=== PATIENT | male | born 1940 | race Caucasian/White ===

== ENCOUNTER 2017-04-23 13:36 | Outpatient (CLI) | payer MEDICARE, BC ==
--- NOTE | 2017-04-24 07:48 | DEXA Report ---
DEXA SCAN: 04/23/2017 CLINICAL INDICATION: A 76-year-old with history of steroid use, chemotherapy, previous spine fractures. TECHNIQUE: Dual energy x-ray absorptiometry (DXA) was performed on a [employer] system. Regions measured are the AP spine, femoral neck, and, if needed, forearm. COMPARISON: None, using from the data from the left hip and left forearm. In accordance with the International Society for Clinical Densitometry (ISCD) guidelines, data from previous exams may be reanalyzed using current recommendations and techniques. This is done to allow a more accurate basis for comparison with the current study. The data for the hip is as follows: REGION BMD (g/cm/cm) T-SCORE Z-SCORE Neck 0.854 -1.3 0.4 TOTAL 0.932 -0.6 0.9 NOTE: The femoral neck or total proximal femur, whichever is lowest, is used for classification. The data for the forearm is as follows: REGION BMD (g/cm/cm) T-SCORE Z-SCORE 1/3 1.018 1.6 3.9 NOTE: The 33% radius of the nondominant forearm is used for classification. IMPRESSION: 1. THE WHO CLASSIFICATION BASED ON THE INTERNATIONAL REFERENCE STANDARD IS OSTEOPENIA (REFERENCE LEFT FEMORAL NECK). THE FRACTURE RISK IS INCREASED. 2. LEFT FOREARM EVALUATION DONE DUE TO HISTORY OF LUMBAR VERTEBRAL BODY FRACTURES. RECOMMENDATION: Patients with diagnosis of osteoporosis or osteopenia should have regular bone mineral density assessment. For those eligible for Medicare, routine testing is allowed once every 2 years. Testing frequency can be increased for patients who have rapidly progressing disease or for those who are receiving medical therapy to restore bone mass. COMMENT: World Health Organization (WHO) definitions for osteoporosis and osteopenia: NORMAL BMD: T-score at -1.0 or higher, fracture risk is low. OSTEOPENIA BMD: T-score between -1.0 and -2.5, fracture risk is increased. OSTEOPOROSIS BMD: T-score at -2.5 or lower, fracture risk high. National Osteoporosis Foundation recommends: 1. Obtain adequate dietary calcium (at least 1200 mg per day) and vitamin D (400 -800 international units per day). 2. Participate, as appropriate, in regular weightbearing and muscle- strengthening exercise. 3. Avoid tobacco use and reduce alcohol and caffeine intake. 4. For more detailed information see the website at www.NOF.org. MTDD
== END 2017-04-23 13:37 | disposition home or self-care (01) ==
LOC: DI 13:36
PROVIDERS: ATTEND Family Medicine
DX: M85.88 Other specified disorders of bone density and structure, other site (principal); M48.54XD Collapsed vertebra, not elsewhere classified, thoracic region, subsequent encounter for fracture with routine healing
CPT/HCPCS: 77080; 77081

== ENCOUNTER 2017-07-22 11:18 | Emergency (ER) | payer MEDICARE, BC ==
--- NOTE | 2017-07-22 12:27 | ED Physician Documentation ---
PD HPI FOCAL NEURO - Stated complaint Stated Complaint: DIZZY - Chief complaint Chief Complaint: Neuro - History obtained from History obtained from: Patient, Family - History of Present Illness Timing - onset: Other (This is a 77-year-old gentleman with history of resolved non-Hodgkin's lymphoma and B-cell lymphoma more recently with chemotherapy and radiation to the submental area, he also has a remote nephrectomy for renal cell carcinoma. He is a type II diabetic. 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 Over the last 2 days he has developed an acute disequilibrium that is worse with the lights off, it has improved somewhat. It was very bad 2 nights ago when he was veering to the left while walking. He continues to feel dizzy and somewhat vertiginous, it does not change with rotation of his head. There is no associated headache, weakness, numbness, or tingling in the extremities or face.) Review of Systems Ten Systems: 10 systems reviewed and negative Constitutional: denies: Fever, Chills Eyes: reports: Other (He says he has chronic diplopia when outside at night but none during the daytime, no change recently.) Ears: denies: Loss of hearing, Ear pain Nose: denies: Rhinorrhea / runny nose, Congestion Throat: denies: Dental pain / toothache, Sore throat Cardiac: denies: Chest pain / pressure, Palpitations Respiratory: denies: Dyspnea, Cough GI: denies: Abdominal Pain, Nausea, Vomiting PD PAST MEDICAL HISTORY - Past Medical History Past Medical History: Yes Cardiovascular: Hypertension, High cholesterol Respiratory: None Neuro: None, Fainting Endocrine/Autoimmune: Type 2 diabetes GI: None : None HEENT: None Psych: None Musculoskeletal: Osteoarthritis, Osteopenia Derm: None Other Past Medical History: lymphoma - Past Surgical History Past Surgical History: Yes General: Cholecystectomy, Colonoscopy Ortho: Arthroscopic surgery HEENT: Cataracts Derm: Skin cancer surgery - Present Medications Home Medications: Ambulatory Orders Medication Instructions Recorded Confirmed Clonazepam 1 mg PO HS 02/24/14 02/24/14 Finasteride 5 mg PO 02/24/14 02/24/14 Glipizide [Glipizide Xl] 10 mg PO DAILY PRN 02/24/14 02/24/14 Insulin Glargine,Hum.rec.anlog 20 unit SQ DAILY 02/24/14 07/22/17 [Lantus Solostar] Losartan Potassium [Cozaar] 100 mg PO DAILY 02/24/14 07/22/17 Metformin HCl [Metformin HCl ER] 2,000 mg PO DAILY PM 02/24/14 07/22/17 Multivitamin [Multi-Day Vitamins] 1 each PO DAILY 02/24/14 02/24/14 [place]-3 Fatty Acids [Fish Oil] 300 mg PO 02/24/14 02/24/14 Omeprazole [PriLOSEC] 20 mg PO DAILY 02/24/14 07/22/17 Tamsulosin HCl 0.8 mg PO DAILY 02/24/14 07/22/17 Saccharomyces Boulardii [Florastor] 500 mg PO BIDWM #40 capsule 10/08/15 Metoprolol Succinate 07/22/17 - Allergies Allergies/Adverse Reactions: Allergies Allergy/AdvReac Type Severity Reaction Status Date / Time sulfamethoxazole Allergy Severe Hives Verified 06/04/14 07:32 [From ] trimethoprim [From ] Allergy Severe Hives Verified 06/04/14 07:32 primidone AdvReac Intermediate pain Verified 06/04/14 07:32 - Social History Does the pt smoke?: No Smoking Status: Never smoker Does the pt drink ETOH?: Yes Does the pt have substance abuse?: No - Family History Family history: reports: Non contributory - Immunizations Immunizations are current?: Yes - POLST Patient has POLST: Yes POLST Status: Full Code PD ED PE NORMAL - Vitals Vital signs reviewed: Yes - General General: Alert and oriented X 3, No acute distress - HEENT HEENT: PERRL, EOMI - Neck Neck: Supple, no meningeal sign, No bony TTP - Cardiac Cardiac: RRR, No murmur - Respiratory Respiratory: No respiratory distress, Clear bilaterally - Abdomen Abdomen: Soft, Non tender - Derm Derm: Normal color, Warm and dry, No rash - Extremities Extremities: No edema, No calf tenderness / cord - Neuro Neuro: Alert and oriented X 3, Normal speech, Other (Medium frequency tremor in the upper extremities which is not new) - Psych Psych: Normal mood, Normal affect NIHSS - Time Time: 12:27 - Level of Consciousness Level of consciousness: (0) Alert, Keenly responsive LOC Questions: (0) Answers both Q's correct LOC Commands: (0) Performs both correctly - Gaze Best Gaze: (0) Normal - Visual Visual: (0) No loss - Facial Palsy Facial Palsy: (0) Normal, symmetrical movement - Motor Arms (both separate) Motor Arm (right): (0) No drift Motor Arm (left): (0) No drift - Motor Legs (both separate) Motor Leg (right): (0) No drift Motor Leg (left): (0) No drift - Limb Ataxia Limb Ataxia: (0) Absent - Sensory Sensory: (0) Normal - Best Language Best Language: (0) No aphasia - Dysarthria Dysarthria: (0) Normal - Extinction and Inattention (formally neg Extinction and inattention: (0) No abnormality - Total Score/Results Total Score/Result: 0 Results - Vitals Vitals: Vital Signs - 24 hr 07/22/17 07/22/17 07/22/17 11:22 12:43 14:11 Temperature 36.3 C L 36.1 C L 36.3 C L Heart Rate 92 73 84 Respiratory 18 15 15 Rate Blood Pressure 160/82 H 137/82 H 150/94 H O2 Saturation 97 98 95 Oxygen O2 Source Room air - Labs Labs: Laboratory Tests 07/22/17 07/22/17 07/22/17 12:50 12:50 13:08 WBC 6.5 RBC 4.70 Hgb 14.4 Hct 41.2 L MCV 87.7 MCH 30.7 MCHC 35.0 RDW 13.3 Plt Count 161 MPV 8.7 Neut # 3.9 Lymph # 1.8 [place] # 0.6 Eos # 0.2 Baso # 0.0 Absolute Nucleated RBC 0.00 Nucleated RBC % 0.0 Sodium 136 Potassium 4.1 Chloride 102 Carbon Dioxide 26 Anion Gap 8.0 BUN 15 Creatinine 1.0 Estimated GFR (MDRD) 73 L Glucose 122 H POC Whole Bld Glucose 99 Calcium 9.4 Total Bilirubin 0.7 AST 27 ALT 16 Alkaline Phosphatase 40 L Total Protein 7.1 Albumin 4.3 Globulin 2.8 Albumin/Globulin Ratio 1.5 Lipase 34 - Rads (name of study) MRI Brain w/w/o Radiology: Final report received, See rad report PD MEDICAL DECISION MAKING - ED course ED course: 77-year-old gentleman presents with an acute disequilibrium that seems central by history and physical. He was sent for an MRI, he does have a known mass in the left inferior colliculus, this was reimaged today. The differential diagnosis was different for the images today than the records they had with them , previous thought was that it was fat density, potentially a lipoma, today to the neuroradiologist looks more like a vascular lesion. There were given a copy of the report and they will follow-up with their neurologist. There is no evidence of stroke. Departure - Departure Disposition: 01 Home, Self Care Clinical Impression: Vertigo, Intracranial mass Condition: Good Record reviewed to determine appropriate education?: Yes Comments: Call your neurologist for follow-up, take the copy of the MRI report with you, this may change how he is managing this. Return if worse. Your blood pressure was elevated today on check into the emergency department. This does not mean that you have hypertension, it is a common phenomenon to come to the emergency department and have elevated blood pressure. I recommend that she see your primary care physician within the week to have it rechecked when you are feeling better.
[2017-07-22 12:57] LABS: BASOPHILS % (AUTO) 0.5 %; EOSINOPHILS # (AUTO) 0.2 10^3/uL (0.0-0.7); EOSINOPHILS % (AUTO) 2.8 %; HCT - HEMATOCRIT 41.2 % (42.0-52.0); HGB - HEMOGLOBIN 14.4 g/dL (14.0-18.0); LYMPHOCYTES # (AUTO) 1.8 10^3/uL (1.5-3.5); LYMPHOCYTES % (AUTO) 27.4 %; MEAN CORPUSCULAR HEMOGLOBIN 30.7 pg (27.0-31.0); MEAN CORPUSCULAR VOLUME 87.7 fL (80.0-94.0); MEAN PLATELET VOLUME 8.7 fL (7.4-11.4); MONOCYTES # (AUTO) 0.6 10^3/uL (0.0-1.0); NEUTROPHILS # (AUTO) 3.9 10^3/uL (1.5-6.6); NEUTROPHILS % (AUTO) 59.3 %; RED CELL DISTRIBUTION WIDTH 13.3 % (12.0-15.0); UNCORRECTED WHITE BLOOD COUNT 6.5 x10^3/uL; WHITE BLOOD COUNT 6.5 x10^3/uL (4.8-10.8)
[2017-07-22 13:08] LABS: ALBUMIN/GLOBULIN RATIO 1.5 (1.0-2.2); BILIRUBIN,TOTAL 0.7 mg/dL (0.2-1.0); CALCIUM 9.4 mg/dL (8.5-10.3); POTASSIUM 4.1 mmol/L (3.5-5.0); TOTAL PROTEIN 7.1 g/dL (6.7-8.2)
[2017-07-22] MEDS ORDERED: GADOBUTROL 7.5 MMOL/7.5 ML VIAL ONE (13:32)
--- NOTE | 2017-07-22 15:39 | MRI Preliminary Report ---
Exam: MRI Brain W/WO IMPRESSION: 1. No evidence of acute or subacute infarct, intracranial hemorrhage, mass effect, midline shift, or hydrocephalus. No abnormal parenchymal enhancement. 2. No prior studies are available for comparison, however, as suggested by the history, there is a he terogeneous, likely cystic/solid mass along the left aspect of the left inferior colliculus (series 3 01 image 10, series 402 image 39), measuring approximately 5 x 4 x 12 mm. There is associated suscept ibility artifact on the GRE sequence. The enhancement associated with this lesion appears to represen t vascular loops. Recommend correlation with prior studies and known history to determine etiology an d evolution of this mass. Possible differential considerations include given associated vascular ty pe enhancement vascular lesion such as cavernoma, partially calcified aneurysm, or arteriovenous ma lformation. [facility] SITE ID: [id number]
--- NOTE | 2017-07-22 15:42 | MRI Report ---
EXAM: MRI BRAIN WITHOUT AND WITH CONTRAST EXAM DATE: 07/22/2017 02:03 PM. CLINICAL HISTORY: Acute dysequilibrium, known inf colliculus mass. COMPARISON: None. TECHNIQUE: Multiplanar, multisequence T1-weighted and fluid-sensitive MR sequences of the brain were performed. Sequences optimized for routine evaluation. Other: None. Without and with IV Contrast: Yes . FINDINGS: Brain Volume: Normal for age. Parenchyma/Dura: No prior studies are available for comparison, as suggested by the history, there is a heterogeneous, likely cystic/solid mass along the left aspect of the left inferior colliculus (ser ies 301 image 10, series 402 image 39), measuring approximately 5 x 4 x 12 mm. There is associated merino sceptibility artifact on the GRE sequence. The enhancement associated with this lesion appears to rep resent vascular loops. No acute parenchymal hemorrhage, mass effect, or midline shift. Scattered T2/F LAIR hyperintense periventricular, subcortical, and deep white matter lesions discernible hemispheres bilaterally. No areas of restricted diffusion to suggest acute infarct. No definite abnormal areas o f susceptibility artifact. No abnormal parenchymal enhancement. Pituitary: Normal. Ventricles/Cisterns: No definite abnormal extra-axial fluid collection/mass seen. Ventricles and sulc i appear age appropriate. Cisterns are patent. Fluid is seen within Meckel's caves. Visualized international marketing specialist al auditory canals appear clear. Sinuses: Visualized paranasal sinuses appear clear. Mastoid air cells and middle ear cavities appear clear. Orbits: Status post bilateral lens replacement surgery. The visualized orbits are otherwise unremarka ble. Vasculature: Visualized major intracranial flow voids appear maintained. Dural sinuses appear patent. Bones: Normal. Other: None. IMPRESSION: 1. No evidence of acute or subacute infarct, intracranial hemorrhage, mass effect, midline shift, or hydrocephalus. No abnormal parenchymal enhancement. 2. No prior studies are available for comparison, however, as suggested by the history, there is a he terogeneous, likely cystic/solid mass along the left aspect of the left inferior colliculus (series 3 01 image 10, series 402 image 39), measuring approximately 5 x 4 x 12 mm. There is associated suscept ibility artifact on the GRE sequence. The enhancement associated with this lesion appears to represen t vascular loops. Recommend correlation with prior studies and known history to determine etiology an d evolution of this mass. Possible differential considerations include given associated vascular ty pe enhancement vascular lesion such as cavernoma, partially calcified aneurysm, or arteriovenous ma lformation. [facility] Referring Provider Line: [phone] SITE ID: [id number]
[2017-07-22 16:01] VITALS: BP 140/88
== END 2017-07-22 16:01 | disposition home or self-care (01) ==
LOC: ED 11:18
DX: R42 Dizziness and giddiness (principal); R22.0 Localized swelling, mass and lump, head; I10 Essential (primary) hypertension; E11.9 Type 2 diabetes mellitus without complications; Z79.4 Long term (current) use of insulin; Z79.84 Long term (current) use of oral hypoglycemic drugs; E78.00 Pure hypercholesterolemia, unspecified; M19.90 Unspecified osteoarthritis, unspecified site; Z85.72 Personal history of non-Hodgkin lymphomas; Z85.528 Personal history of other malignant neoplasm of kidney; Z90.5 Acquired absence of kidney
CPT/HCPCS: 36415; 70553; 80053; 83690; 85025; 99284; A9585

== ENCOUNTER 2018-08-06 09:40 | Emergency (ER) | payer MEDICARE, BC ==
[2018-08-06 10:45] LABS: BASOPHILS % (AUTO) 0.2 %; EOSINOPHILS # (AUTO) 0.1 10^3/uL (0.0-0.7); EOSINOPHILS % (AUTO) 1.8 %; HGB - HEMOGLOBIN 14.9 g/dL (14.0-18.0); LYMPHOCYTES # (AUTO) 1.6 10^3/uL (1.5-3.5); LYMPHOCYTES % (AUTO) 29.4 %; MEAN CORPUSCULAR HEMOGLOBIN 30.1 pg (27.0-31.0); MEAN PLATELET VOLUME 9.7 fL (7.4-11.4); MONOCYTES # (AUTO) 0.6 10^3/uL (0.0-1.0); MONOCYTES % (AUTO) 10.8 %; NEUTROPHILS # (AUTO) 3.1 10^3/uL (1.5-6.6); NEUTROPHILS % (AUTO) 57.8 %; PLT - PLATELET COUNT 157 10^3/uL (130-450); RED BLOOD COUNT 4.94 10^6/uL (4.70-6.10); RED CELL DISTRIBUTION WIDTH 13.5 % (12.0-15.0); WHITE BLOOD COUNT 5.4 x10^3/uL (4.8-10.8)
[2018-08-06 10:52] LABS: ALBUMIN 4.2 g/dL (3.2-5.5); ALBUMIN/GLOBULIN RATIO 1.4 (1.0-2.2); BILIRUBIN,TOTAL 0.3 mg/dL (0.2-1.0); CALCIUM 9.5 mg/dL (8.5-10.3); TOTAL PROTEIN 7.1 g/dL (6.7-8.2)
--- NOTE | 2018-08-06 11:19 | XRAY Report ---
Reason: Chest Pain Procedure Date: 08/06/2018 Accession Number: [id number] / [id number] Procedure: XR - Chest 1 View X-Ray CPT Code: 96593 FULL RESULT: EXAM: CHEST RADIOGRAPHY EXAM DATE: 08/06/2018 11:05 AM. CLINICAL HISTORY: Chest Pain. COMPARISON: CHEST 2 VIEW PA/LAT 09/10/2015 6:40 PM. TECHNIQUE: 1 view. FINDINGS: Lungs/Pleura: No focal opacities evident. No pleural effusion. No pneumothorax. Mediastinum: Within exam limitations, the cardiomediastinal contour is normal. There is mild atherosclerotic calcification of the aortic arch. Other: There are multiple surgical clips in the right upper quadrant of the abdomen. No acute osseous abnormality. IMPRESSION: No acute cardiopulmonary abnormality. [facility]
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
[2018-08-06 13:07] VITALS: BP 134/83
== END 2018-08-06 13:16 | disposition home or self-care (01) ==
LOC: ED 09:40
DX: R07.89 Other chest pain (principal); I45.10 Unspecified right bundle-branch block; I10 Essential (primary) hypertension; E78.00 Pure hypercholesterolemia, unspecified; E11.9 Type 2 diabetes mellitus without complications; Z79.4 Long term (current) use of insulin; Z85.72 Personal history of non-Hodgkin lymphomas; Z85.89 Personal history of malignant neoplasm of other organs and systems
CPT/HCPCS: 71045; 80053; 83690; 83880; 84484; 85025; 85379; 93005; 99284

== ENCOUNTER 2018-08-24 09:18 | Outpatient (CLI) | payer MEDICARE, BC ==
--- NOTE | 2018-08-24 14:02 | Ultrasound Report ---
Reason: ATHEROSCLEROSIS OF AORTA Procedure Date: 08/24/2018 Accession Number: [id number] / [id number] Procedure: US - Ankle Brachial Index CPT Code: FULL RESULT: EXAM: AORTIC DOPPLER ULTRASOUND AND ANKLE/BRACHIAL INDEX EXAM DATE: 08/24/2018 10:45 AM. CLINICAL HISTORY: Atherosclerosis of aorta. COMPARISON: None. TECHNIQUE: Real-time sonographic imaging of retroperitoneal vascular structures, including color-flow, Doppler flow and spectral analysis was performed by the social science manager. Multiple procurement representative static images were saved for review. Real-time sonographic imaging and blood pressures of the lower extremity vasculature was performed. FINDINGS: Aorta: The abdominal aorta was adequately visualized. No evidence for abdominal aortic aneurysm. Aorta: Proximal: Sagittal AP: 2.5 cm. Mid: Transverse: 2.0 x 1.9 cm. Distal: Transverse: 2.0 x 2.4 cm. Caliber WNL: Yes. Plaque visualized: Yes. Iliacs: Right Iliac: Transverse: 1.1 x 1.0 cm. Left Iliac: Transverse: 1.3 x 1.1 cm. Doppler: Prx Aorta: PSV 96 cm/sec. Mid Aorta: PSV 82 cm/sec. Dist Aorta: PSV 88 cm/sec. Proximal RCIA PSV: 118 cm/sec. Proximal LCIA PSV: 148 cm/sec. Iliac Vessels: The visualized proximal common iliac arteries are normal in caliber. Lower Extremity Vasculature: Right brachial artery blood pressure 152/78, left brachial artery blood pressure 152/75. Right posterior tibial artery blood pressure 185/82 left posterior tibial artery blood pressure 183/70/ Right ankle/arm index 1.22 and left ankle/arm index of 1.20. The bilateral posterior tibial arteries and dorsalis pedis arteries demonstrate patency with brisk upstroke and expected arterial waveforms. Subjectively, the vasculature is markedly atherosclerotic. The following peak systolic velocities were recorded in centimeters per second: Right CPR INSTRUCTOR: 67 Right DPA: 20 Left CPR INSTRUCTOR: 52 Left DPA: 46 IMPRESSION: No abdominal aortic aneurysm. Atherosclerotic lower extremity arteries with preserved arterial inflow supplying the dorsalis pedis artery. The ankle arm indices are possibly falsely elevated due to vascular calcinosis. [facility]
--- NOTE | 2018-08-24 14:02 | Ultrasound Report ---
Reason: ATHEROSCLEROSIS OF AORTA Procedure Date: 08/24/2018 Accession Number: [id number] / [id number] Procedure: US - Duplex Aorta Complete CPT Code: FULL RESULT: EXAM: AORTIC DOPPLER ULTRASOUND AND ANKLE/BRACHIAL INDEX EXAM DATE: 08/24/2018 10:45 AM. CLINICAL HISTORY: Atherosclerosis of aorta. COMPARISON: None. TECHNIQUE: Real-time sonographic imaging of retroperitoneal vascular structures, including color-flow, Doppler flow and spectral analysis was performed by the continuity person. Multiple marketing sales representative static images were saved for review. Real-time sonographic imaging and blood pressures of the lower extremity vasculature was performed. FINDINGS: Aorta: The abdominal aorta was adequately visualized. No evidence for abdominal aortic aneurysm. Aorta: Proximal: Sagittal AP: 2.5 cm. Mid: Transverse: 2.0 x 1.9 cm. Distal: Transverse: 2.0 x 2.4 cm. Caliber WNL: Yes. Plaque visualized: Yes. Iliacs: Right Iliac: Transverse: 1.1 x 1.0 cm. Left Iliac: Transverse: 1.3 x 1.1 cm. Doppler: Prx Aorta: PSV 96 cm/sec. Mid Aorta: PSV 82 cm/sec. Dist Aorta: PSV 88 cm/sec. Proximal RCIA PSV: 118 cm/sec. Proximal LCIA PSV: 148 cm/sec. Iliac Vessels: The visualized proximal common iliac arteries are normal in caliber. Lower Extremity Vasculature: Right brachial artery blood pressure 152/78, left brachial artery blood pressure 152/75. Right posterior tibial artery blood pressure 185/82 left posterior tibial artery blood pressure 183/70/ Right ankle/arm index 1.22 and left ankle/arm index of 1.20. The bilateral posterior tibial arteries and dorsalis pedis arteries demonstrate patency with brisk upstroke and expected arterial waveforms. Subjectively, the vasculature is markedly atherosclerotic. The following peak systolic velocities were recorded in centimeters per second: Right CRIMINALIST: 67 Right DPA: 20 Left CRIMINALIST: 52 Left DPA: 46 IMPRESSION: No abdominal aortic aneurysm. Atherosclerotic lower extremity arteries with preserved arterial inflow supplying the dorsalis pedis artery. The ankle arm indices are possibly falsely elevated due to vascular calcinosis. RADIA
== END 2018-08-24 09:19 | disposition home or self-care (01) ==
LOC: DI 09:18
PROVIDERS: ATTEND Internal Medicine Cardiovascular Disease
DX: I70.0 Atherosclerosis of aorta (principal); I70.203 Unspecified atherosclerosis of native arteries of extremities, bilateral legs
CPT/HCPCS: 93922; 93978

== ENCOUNTER 2018-10-09 01:23 | Emergency (ER) | payer MEDICARE, BC ==
--- NOTE | 2018-10-09 01:48 | ED Physician Documentation ---
PD HPI HEADACHE - Stated complaint Stated Complaint: HEAD PAIN - Chief complaint Chief Complaint: General - History obtained from History obtained from: Patient - History of Present Illness Timing - onset: Other (episodic since 09/27) Timing - duration: Hours, Days, Other (episodes last hours, sometimes the whole day) Timing - details: Abrupt onset, Intermittant Pain level max: 10 Pain level now: 1 Location: Left, Other (left occipitotemporal) Quality: Aching, Stabbing Associated symptoms: Vision changes (blurry vision). No: Fever, Stiff neck, Nausea, Vomiting, Weakness, Numbness, Syncope, Seizure, Eye pain Improved by: Nothing Worsened by: Other (no inciting or exacerbating factors) Contributing factors: No: Anticoagulated, Possible carbon monoxide, Hypertension, Recent illness, Trauma Similar symptoms before: No diagnosis, Work up / diagnostics (recent blood work including CBC; per patient, unremarkable results. has MRI scheduled for middle of coming week) Recently seen: Clinic - Additional information Additional information: c/o episodic left-sided headache since beginning of this month. took two oxycodone tablets earlier this afternoon and this provided significant relief (ELENA is nearly resolved by the time of this evaluation) Review of Systems Constitutional: reports: Reviewed and negative Eyes: reports: Decreased vision (blurry vision with the headaches, but resolves with headache resolution) Ears: reports: Reviewed and negative Nose: denies: Sinus pressure / pain Throat: denies: Dental pain / toothache, Sore throat Cardiac: reports: Reviewed and negative Respiratory: reports: Reviewed and negative GI: denies: Nausea, Vomiting Skin: denies: Rash Musculoskeletal: denies: Neck pain, Back pain Neurologic: reports: Headache. 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 - Past Surgical History Past Surgical History: Yes General: Cholecystectomy, Colonoscopy Ortho: Arthroscopic surgery HEENT: Cataracts Derm: Skin cancer surgery - Present Medications Home Medications: Ambulatory Orders Medication Instructions Recorded Confirmed Finasteride 5 mg PO 02/24/14 02/24/14 Glipizide [Glipizide Xl] 10 mg PO DAILY PRN 02/24/14 02/24/14 Insulin Glargine,Hum.rec.anlog 20 unit SQ DAILY 02/24/14 07/22/17 [Lantus Solostar] Losartan Potassium [Cozaar] 100 mg PO DAILY 02/24/14 07/22/17 Metformin HCl [Metformin HCl ER] 2,000 mg PO DAILY PM 02/24/14 07/22/17 Multivitamin [Multi-Day Vitamins] 1 each PO DAILY 02/24/14 02/24/14 [place]-3 Fatty Acids [Fish Oil] 300 mg PO 02/24/14 02/24/14 Omeprazole [PriLOSEC] 20 mg PO DAILY 02/24/14 07/22/17 Tamsulosin HCl 0.8 mg PO DAILY 02/24/14 07/22/17 clonazePAM [Clonazepam] 1 mg PO HS 02/24/14 02/24/14 Saccharomyces Boulardii [Florastor] 500 mg PO BIDWM #40 capsule 10/08/15 Metoprolol Succinate 07/22/17 Oxycodone HCl/Acetaminophen 1 - 2 each PO Q6H PRN #14 tablet 10/09/18 [Percocet 5-325 mg Tablet] - Allergies Allergies/Adverse Reactions: Allergies Allergy/AdvReac Type Severity Reaction Status Date / Time sulfamethoxazole Allergy Severe Hives Verified 10/09/18 01:37 [From ] trimethoprim [From ] Allergy Severe Hives Verified 10/09/18 01:37 primidone AdvReac Intermediate pain Verified 10/09/18 01:37 - Social History Does the pt smoke?: No Smoking Status: Never smoker Does the pt drink ETOH?: Yes Does the pt have substance abuse?: No - Immunizations Immunizations are current?: Yes - POLST Patient has POLST: Yes POLST Status: Full Code PD ED PE NORMAL - Vitals Vital signs reviewed: Yes - General General: Alert and oriented X 3, No acute distress, Well developed/nourished - HEENT HEENT: PERRL, EOMI, Ears normal, Moist mucous membranes, Pharynx benign, Other (no mastoid erythema or tenderness) - Neck Neck: Supple, no meningeal sign - Cardiac Cardiac: RRR, No murmur - Respiratory Respiratory: No respiratory distress, Clear bilaterally - Derm Derm: Normal color, Warm and dry - Neuro Neuro: Alert and oriented X 3, 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 2-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, No motor deficit, No sensory deficit, Normal speech Eye Opening: Spontaneous Motor: Obeys Commands Verbal: Oriented GCS Score: 15 Results - Vitals Vitals: Vital Signs - 24 hr 10/09/18 10/09/18 10/09/18 01:34 03:40 03:41 Temperature 37.0 C Heart Rate 90 82 Respiratory 18 16 Rate Blood Pressure 167/78 H 146/76 H O2 Saturation 94 95 Oxygen O2 Source Room air - Rads (name of study) CT head Radiology: Prelim report reviewed, See rad report PD MEDICAL DECISION MAKING - ED course Complexity details: reviewed results, re-evaluated patient, considered differential, d/w patient Departure - Departure Disposition: 01 Home, Self Care Clinical Impression: Headache Condition: Good Instructions: ED Cephalgia Unspecified Follow-Up: Dayron Kennedy MD [Primary Care Provider] - Within 1 week Prescriptions: Oxycodone HCl/Acetaminophen [Percocet 5-325 mg Tablet] 1 - 2 each PO Q6H PRN #14 tablet PRN Reason: pain Discharge Date/Time: 10/09/18 03:51
--- NOTE | 2018-10-09 02:54 | CT Report ---
Reason: headache Procedure Date: 10/09/2018 Accession Number: [id number] / [id number] Procedure: CT - Head W/O CPT Code: FULL RESULT: EXAM: CT HEAD EXAM DATE: 10/09/2018 02:41 AM. CLINICAL HISTORY: Headache. COMPARISON: BRAIN W/WO 07/22/2017 1:24 PM. TECHNIQUE: Multiaxial CT images were obtained from the foramen magnum to the vertex. Reformats: Sagittal and coronal. IV contrast: None. In accordance with CT protocol optimization, one or more of the following dose reduction techniques were utilized for this exam: automated exposure control, adjustment of mA and/or KV based on patient size, or use of iterative reconstructive technique. FINDINGS: Parenchyma: No intraparenchymal hemorrhage. No evidence of mass, midline shift, or CT findings of infarction. Davis-white differentiation is distinct. There is mild chronic microvascular change in the deep white matter bilaterally. Extraaxial Spaces: Normal for age. No evidence of subarachnoid hemorrhage. There is no subdural or epidural collection. Ventricles: Normal in size and position. Sinuses and Orbits: Imaged paranasal sinuses, orbits, and mastoids show no significant abnormality. Bones: No evidence of fracture or calvarial defect. Other: None. IMPRESSION: 1. No acute intracranial abnormality. 2. No intra-cranial mass lesion, mass-effect, or hydrocephalus. 3. Mild age-related generalized cerebral volume loss and chronic microvascular change. RADIA
[2018-10-09 03:42] VITALS: BP 146/76
== END 2018-10-09 03:51 | disposition home or self-care (01) ==
LOC: ED 01:23
DX: R51 Headache (principal); E78.00 Pure hypercholesterolemia, unspecified; E11.9 Type 2 diabetes mellitus without complications; I10 Essential (primary) hypertension; Z85.528 Personal history of other malignant neoplasm of kidney; Z90.5 Acquired absence of kidney
CPT/HCPCS: 70450; 99283

== ENCOUNTER 2019-05-03 15:21 | Outpatient (CLI) | payer MEDICARE, BC ==
--- NOTE | 2019-05-04 09:40 | Ultrasound Report ---
Reason: RENAL CELL CANCER, CHRONIC KIDNEY DISEASE,STAGEIII Procedure Date: 05/03/2019 Accession Number: [id number] / [id number] Procedure: US - Retroperitoneal CPT Code: FULL RESULT: EXAM: RENAL ULTRASOUND EXAM DATE: 05/03/2019 04:16 PM. CLINICAL HISTORY: Renal cell cancer, chronic kidney disease, stage III. COMPARISON: None. TECHNIQUE: Real-time scanning was performed with static images obtained. FINDINGS: Right Kidney: Status post nephrectomy in 1995 with no mass in the nephrectomy bed identified. Left Kidney: 13.8 cm. Multiple cysts are noted measuring up to 5.0 x 4.8 x 4.2 cm in the upper pole. There is a nonobstructing 0.7 cm calculus in the lower pole. Bladder: Left jet is seen. The prevoid bladder volume was 413 cc. The postvoid bladder volume was 49 cc. Other: None. IMPRESSION: No recurrent mass in the nephrectomy bed. 49 cc postvoid residual. RADIA
== END 2019-05-03 15:22 | disposition home or self-care (01) ==
LOC: DI 15:21
PROVIDERS: ATTEND Family Medicine
DX: C64.9 Malignant neoplasm of unspecified kidney, except renal pelvis (principal); N18.3 Chronic kidney disease, stage 3 (moderate)
CPT/HCPCS: 76770

== ENCOUNTER 2019-06-30 08:00 | Outpatient (CLI) | payer MEDICARE, BC ==
[2019-06-30 18:49] LABS: BASOPHILS % (AUTO) 0.5 %; EOSINOPHILS # (AUTO) 0.2 10^3/uL (0.0-0.7); EOSINOPHILS % (AUTO) 2.5 %; HGB - HEMOGLOBIN 14.3 g/dL (14.0-18.0); LYMPHOCYTES # (AUTO) 1.7 10^3/uL (1.5-3.5); LYMPHOCYTES % (AUTO) 28.7 %; MEAN CORPUSCULAR HEMOGLOBIN 30.2 pg (27.0-31.0); MEAN CORPUSCULAR HGB CONC 34.3 g/dL (32.0-36.0); MEAN CORPUSCULAR VOLUME 88.2 fL (80.0-94.0); MEAN PLATELET VOLUME 11.8 fL (7.4-11.4); MONOCYTES # (AUTO) 0.6 10^3/uL (0.0-1.0); MONOCYTES % (AUTO) 9.4 %; NEUTROPHILS # (AUTO) 3.5 10^3/uL (1.5-6.6); NEUTROPHILS % (AUTO) 58.4 %; PLT - PLATELET COUNT 181 10^3/uL (130-450); RED BLOOD COUNT 4.73 10^6/uL (4.70-6.10); RED CELL DISTRIBUTION WIDTH 12.9 % (12.0-15.0)
[2019-06-30 19:06] LABS: ALBUMIN/GLOBULIN RATIO 1.3 (1.0-2.2); BILIRUBIN,TOTAL 0.7 mg/dL (0.2-1.0); CALCIUM 9.7 mg/dL (8.5-10.3)
== END 2019-06-30 23:59 | disposition home or self-care (01) ==
LOC: LAB.WCP 08:00
PROVIDERS: ATTEND Internal Medicine Hematology & Oncology
DX: C83.30 Diffuse large B-cell lymphoma, unspecified site (principal)
CPT/HCPCS: 36415; 80053; 83615; 85025

== ENCOUNTER 2019-10-24 11:15 | Emergency (ER) | payer MEDICARE, BC ==
[2019-10-24 11:48] VITALS: BP 148/73
[2019-10-24 12:43] LABS: BASOPHILS % (AUTO) 0.5 %; EOSINOPHILS # (AUTO) 0.1 10^3/uL (0.0-0.7); EOSINOPHILS % (AUTO) 1.8 %; HGB - HEMOGLOBIN 15.1 g/dL (14.0-18.0); LYMPHOCYTES % (AUTO) 26.1 %; MEAN CORPUSCULAR HEMOGLOBIN 29.3 pg (27.0-31.0); MEAN CORPUSCULAR HGB CONC 33.6 g/dL (32.0-36.0); MEAN CORPUSCULAR VOLUME 87.2 fL (80.0-94.0); MEAN PLATELET VOLUME 10.3 fL (7.4-11.4); MONOCYTES % (AUTO) 12.9 %; NEUTROPHILS # (AUTO) 4.4 10^3/uL (1.5-6.6); NEUTROPHILS % (AUTO) 58.2 %; PLT - PLATELET COUNT 200 10^3/uL (130-450); RED BLOOD COUNT 5.15 10^6/uL (4.70-6.10); RED CELL DISTRIBUTION WIDTH 12.8 % (12.0-15.0); WHITE BLOOD COUNT 7.6 x10^3/uL (4.8-10.8)
--- NOTE | 2019-10-24 12:45 | XRAY Report ---
Reason: cough/congestion Procedure Date: 10/24/2019 Accession Number: [id number] / [id number] Procedure: XR - Chest 2 View X-Ray CPT Code: 29079 Final Report FULL RESULT: EXAM: CHEST RADIOGRAPHY EXAM DATE: 10/24/2019 12:11 PM. CLINICAL HISTORY: Cough/congestion. COMPARISON: CHEST 1 VIEW 08/06/2018 10:57 AM. TECHNIQUE: 2 views. FINDINGS: Lungs/Pleura: No focal opacities evident. No pleural effusion. No pneumothorax. Normal volumes. Mediastinum: Mild aortic calcifications are again seen, cardiomediastinal silhouette is otherwise unremarkable. Other: Surgical clips in the upper abdomen are redemonstrated. IMPRESSION: No acute cardiopulmonary abnormality. RADIA
[2019-10-24 13:08] LABS: CALCIUM 9.7 mg/dL (8.5-10.3); CREATININE 1.2 mg/dL (0.6-1.2); TOTAL PROTEIN 7.9 g/dL (6.7-8.2)
== END 2019-10-24 13:32 | disposition left against medical advice (07) ==
LOC: ED 11:15
DX: Z53.21 Procedure and treatment not carried out due to patient leaving prior to being seen by health care provider (principal)
CPT/HCPCS: 36415; 71046; 80053; 83690; 85025

== ENCOUNTER 2020-05-01 15:57 | Outpatient (CLI) | payer MEDICARE, BC ==
--- NOTE | 2020-05-01 17:09 | Ultrasound Report ---
PROCEDURE: Retroperitoneal INDICATIONS: KIDNEY STONES TECHNIQUE: Real-time scanning was performed of the retroperitoneal organs, with image documentation. COMPARISON: 05.03.19. FINDINGS: Kidneys: Status post right nephrectomy. Left kidney measures 14 cm in length and demonstrates a renal cortical thickness of 16 mm. Multiple cysts are present, as before, largest of which is in the super ior pole measuring 55 mm (previously measuring 50 mm). Multiple left renal calculi are present which are nonobstructing, largest of which is in the interpolar kidney measuring 14 mm. Inferior pole renal calculi measuring 8 mm and 5 mm are present, as before. No hydronephrosis. Prevoid urinary bladder volume is 316 cc. Postvoid residual is 217 cc. Prostate is enlarged measuring 56 mm (previously 43 mm) to see. Left ureteral jet is present. IMPRESSION: 1. Status post right nephrectomy. 2. Multiple nonobstructing left renal calculi. 3. Large postvoid residual in the urinary bladder. 4. Increased prostate hypertrophy. Recommend correlation with PSA values. Reviewed by: Herbert Gifford MD on 05/01/2020 5:07 PM PDT Approved by: Herbert Gifford MD on 05/01/2020 5:07 PM PDT Station ID: [id number]
== END 2020-05-01 15:58 | disposition home or self-care (01) ==
LOC: DI 15:57
PROVIDERS: ATTEND Student in an Organized Health Care Education/Training Program
DX: N20.0 Calculus of kidney (principal); N40.0 Benign prostatic hyperplasia without lower urinary tract symptoms; Z90.5 Acquired absence of kidney
CPT/HCPCS: 76770

== ENCOUNTER 2020-11-21 13:47 | Outpatient (CLI) | payer MEDICARE, BC ==
--- NOTE | 2020-11-21 16:43 | XRAY Report ---
PROCEDURE: Abdomen 1 View X-Ray INDICATIONS: KIDNEY STONES TECHNIQUE: 1 view of the abdomen were acquired. COMPARISON: Ultrasound abdomen 05/01/2020 CT abdomen pelvis 10/08/2015 FINDINGS: Surgical changes and devices: None. Bowel: No pneumoperitoneum. The bowel gas pattern is normal. Soft tissues: No masses; visualized solid organ contours appear normal in size. There are 2 calcific ations identified overlying the left renal shadow, the lowest overlying the inferior pole measuring 7 mm. Bones: No suspicious bony abnormalities. Vertebral/kyphoplasty changes are present at L2. IMPRESSION: Left renal calcifications as above. It is noted these were present on prior ultrasound. Reviewed by: Nilsa Schumacher MD on 11/21/2020 4:42 PM PST Approved by: Nilsa Schumacher MD on 11/21/2020 4:42 PM [facility] Station ID: [id number]
== END 2020-11-21 13:48 | disposition home or self-care (01) ==
LOC: DI 13:47
PROVIDERS: ATTEND Student in an Organized Health Care Education/Training Program
DX: N20.0 Calculus of kidney (principal)

== ENCOUNTER 2021-03-07 08:00 | Outpatient (CLI) | payer MEDICARE, BC | END 2021-03-07 23:59 | disposition home or self-care (01) | LOC: LAB.WCP 08:00 | PROVIDERS: ATTEND Family Medicine | DX: Z01.84 Encounter for antibody response examination (principal); Z20.822 Contact with and (suspected) exposure to COVID-19 | CPT/HCPCS: 36415; 84550; 86769 ==

== ENCOUNTER 2021-05-07 16:41 | Outpatient (CLI) | payer MEDICARE, BC ==
--- NOTE | 2021-05-08 09:29 | Ultrasound Report ---
PROCEDURE: Retroperitoneal INDICATIONS: KIDNEY STONES AND BPH TECHNIQUE: Real-time scanning was performed of the retroperitoneal organs, with image documentation. COMPARISON: 05/01/2020. FINDINGS: Kidneys: Right kidney is surgically absent. No gross abnormality is seen in right renal fossa. Left k idney measures 14.0 cm long. Left renal cortical thickness is 1.8 cm. 2 nonobstructing renal calculi are noted in mid to lower pole of left kidney measures up to 9 x 8 x 8 mm in size in lower pole of le ft kidney. Multiple left-sided renal cysts are seen and measures up to 6.5 x 5.4 x 6.6 cm in size in the upper pole of left kidney. No gross solid appearing renal lesion. No hydronephrosis. Bladder: Prevoid volume is 321.8 cc, postvoid residual is 181.6 cc. Enlarged prostate gland measures 4.6 x 4.2 x 5.2 cm in size is seen. Left ureteral jet is noted during the study. No discrete bladder wall mass or thickening is seen. IMPRESSION: 1. Prior right nephrectomy without gross abnormality seen in right renal fossa. 2. Subcentimeter nonobstructing left renal calculi and numerous left renal cysts as above. No solid a ppearing renal lesion. No hydronephrosis. 3. Enlarged prostate gland. Moderate to large amount of postvoid residual as above. No discrete bladd er wall mass is seen. Reviewed by: Jimi Kang MD on 05/08/2021 9:28 AM PDT Approved by: Jimi Kang MD on 05/08/2021 9:28 AM PDT Station ID: [id number]
== END 2021-05-07 16:42 | disposition home or self-care (01) ==
LOC: DI 16:41
PROVIDERS: ATTEND Urology
DX: N20.0 Calculus of kidney (principal); N40.0 Benign prostatic hyperplasia without lower urinary tract symptoms; N28.1 Cyst of kidney, acquired

== ENCOUNTER 2021-06-17 15:15 | Outpatient (CLI) | payer MEDICARE, BC ==
[2021-06-17 18:34] LABS: CALCIUM 9.9 mg/dL (8.5-10.3); POTASSIUM 4.4 mmol/L (3.5-5.0)
[2021-06-17 18:54] LABS: CREATININE,URINE 33.4 mg/dL; MICROALBUMIN,URINE 0.7 mg/dL (0-300.0)
[2021-06-17 19:32] LABS: ESTIMATED AVERAGE GLUCOSE 163 mg/dL (70-100); HEMOGLOBIN A1c% 7.3 % (4.27-6.07)
== END 2021-06-17 23:59 | disposition home or self-care (01) ==
LOC: LAB.WCP 15:15
PROVIDERS: ATTEND Family Medicine
DX: E11.22 Type 2 diabetes mellitus with diabetic chronic kidney disease (principal); N18.32 Chronic kidney disease, stage 3b
CPT/HCPCS: 36415; 80048; 82043; 82570; 83036